=== PATIENT | female | born 2000 | race Hispanic/Latino ===

== ENCOUNTER 2021-08-26 17:33 | Emergency (ER) | payer OTHER ==
[2021-08-26] MEDS ORDERED: Acetaminophen 500 MG TAB ONE (18:35)
== END 2021-08-26 18:53 | disposition home or self-care (01) ==
LOC: ERS 17:33
DX: S93.401A Sprain of unspecified ligament of right ankle, initial encounter (principal); W18.40XA Slipping, tripping and stumbling without falling, unspecified, initial encounter